=== PATIENT | female | born 1985 | race Asian ===

== ENCOUNTER → 2023-10-25 17:05 | Outpatient (REF) | payer OTHER, SELFPAY | LOC: WDC 17:05 | PROVIDERS: ATTENDING PHYSICIAN Student in an Organized Health Care Education/Training Program | DX: Z12.31 Encounter for screening mammogram for malignant neoplasm of breast (principal) | CPT/HCPCS: 77063; 77067 ==

== ENCOUNTER 2024-01-26 13:05 | Emergency (ER) | payer OTHER, SELFPAY ==
[2024-01-26 13:32] VITALS: BP 160/100
--- NOTE | 2024-01-26 14:15 | ED.GENMED ---
History of Present Illness
General
Chief Complaint: Skin Surface Trauma
Source: patient
Exam Limitations: none
Time Seen by Provider: 01/26/24 14:09
Travel History
Have you had any contact with someone who has COVID-19?: No
Do you have any symptoms of coronavirus? Fever > 100 degrees, chills, cough, shortness of breath, sore throat, loss of taste or smell, muscle aches, or headache?: No
History of Present Illness
History of Present Illness:
See MDM
Past History
Past History
ED Past Medical History: None
ED Past Surgical History: None
Social History
Tobacco: Non-smoker
Alcohol: None
Phy Exam
Physical Exam
Physical Exam:
See MDM
Course
Vital Signs
Initial and Last Documented VS:
Initial Vital Signs
Temp Pulse Resp BP Pulse Ox
98.2 F 97 16 160/100 98
01/26/24 13:32 01/26/24 13:32 01/26/24 13:32 01/26/24 13:32 01/26/24 13:32
Last Documented Vital Signs
Temp Pulse Resp BP Pulse Ox
98.2 F 97 16 160/100 98
01/26/24 13:32 01/26/24 13:32 01/26/24 13:32 01/26/24 13:32 01/26/24 13:32
Procedures
Laceration Closure
Left Distal Ulnar Thumb:
Status of Wound: clean
Size of Wound in cm: 2
Description of Wound Edges: sharp
Preparation: cleaned with soap & water
Revision/Debridement: routine- no revision
Wound exploration: explored to base- no FB
Type of Closure: Dermabond-skin glue
MDM/Problems Addressed
Differential Diagnosis Includes:
HPI and MDM Narrative:
38-year-old female presenting with left thumb laceration. She was using her right hand with a scraping tool and cut her left thumb accidentally. She believes her tetanus is up-to-date. Patient was worried about the uncontrolled bleeding
Physical exam
General: Well appearing and non-toxic
HEENT: protecting airway
Neck: appears supple
CV: No evidence of cyanosis
Resp: No accessory muscle use
Abd: Non-distended
Extremities: 2 cm laceration to distal left thumb on the ulnar side. Cap refill less than 2 seconds. Sensation grossly intact. No active bleeding
Neuro: alert
Psych: Normal affect
Skin: Intact
Problems Addressed including Acute and Chronic Conditions affecting care:
1. Left thumb laceration
Acuity: acute
Prognosis: stable
Details: Dermabond placed with good cosmetic effect and no complication noted. Bleeding has resolved. Will write for clindamycin to be taken if she notices any redness, worsening pain or discharge.
Differential Diagnosis (but not limited to): Thumb laceration, abrasion
Testing considered: X-ray but it does not appear deep enough to involve bone
Drug therapy (if applicable): OTC meds, please see d/c instruction regarding Rx drugs
Amount and/or Complexity of Data Reviewed
Clinical info obtained from: Patient
External data reviewed: N/A
Labs I independently reviewed (but not limited to): N/A
Radiology: N/A
Pulse Ox: not hypoxic
EKG independently reviewed: N/A
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
Critical Care: N/A
Risk of Complication:
Social Determinants of health: Good social support
Discussed with other providers: N/A
Escalation of Care includes Admit/Obs: After being observed in the Emergency Department, pt stable for discharge.
Occasional wrong word or 'sound a like' substitutions may have occurred due to the inherent limitations of voice recognition software. Read the chart carefully and recognize, using context, where substitutions have occurred.
*Critical Care Note
Total Time (30-74mins, 75-104mins- exclusive of procedures): Not Applicable
ED Attending Note
-
Portions of this chart may have been created with voice recognition software.� Occasional wrong word or��sound alike� substitutions may have occurred due to the inherent limitations of voice recognition software.
Discharge Plan
Departure
Patient Disposition: Home (Routine Discharge)
Date of Disposition: 01/26/24
Time of Disposition: 14:19
Patient with high blood pressure during this ER visit?: Yes
Discharge Problem:
Laceration of thumb
Instructions: Laceration Repair With Glue (DC), BLOOD PRESSURE
Prescriptions:
New
clindamycin HCl 300 mg capsule
300 mg PO TID 7 Days Qty: 21 0RF
No Action
nifedipine 30 MG tablet extended release
30 mg PO BID
ibuprofen 600 MG tablet
600 mg PO Q6HPRN PRN (Reason: cramps) Qty: 30 0RF
Activity Restrictions/Additional Instructions:
Your wound was fixed with derma-rich. This is a special glue that holds a wound closed similar to stitches. This type of wound closure will eventually fall off by itself and does not need to be removed. You may wash the area very gently, but do not
scrub or pick at the glue. Watch for signs of infection: fever over 100.5�, increasing pain, red streaks around wound, swelling, drainage of pus, or bad smell. If any of these happen, return to ED promptly. Since finger lacerations can get infected
easily, I wrote you for an antibiotic called clindamycin. If you notice any of these symptoms, please start the antibiotics. If there is no evidence of infection as stated above, disregard the prescription. All wounds may scar, however you may
reduce the appearance of scarring by avoiding sun exposure to the scar and applying skin moisturizer with spf protection to the scar once the wound is healed.
Interventions
Interventions:
*ED COVID-19 Vaccine History Last Done: 01/26/24 13:32
Discharge Date and Time
Print Language: BAHAMIAN
== END 2024-01-26 14:46 | disposition home or self-care (01) ==
LOC: EMR 13:05
PROVIDERS: EMERGENCY PHYSICIAN Student in an Organized Health Care Education/Training Program; FAMILY PHYSICIAN Student in an Organized Health Care Education/Training Program
DX: S61.012A Laceration without foreign body of left thumb without damage to nail, initial encounter (principal); W45.8XXA Other foreign body or object entering through skin, initial encounter
CPT/HCPCS: 99282; 12001